=== PATIENT | male | born 1975 | race African-American/Black ===

== ENCOUNTER 2017-10-03 14:33 | Emergency (ER) | payer SELFPAY ==
[~2017-10-03] VITALS: Ht 190.5 cm; Wt 110.6 kg
[2017-10-03] MEDS ORDERED: IBUPROFEN 800MG TABLET PO ONE (17:00)
[2017-10-03 18:17] VITALS: BP 133/81
== END 2017-10-03 18:19 | disposition home or self-care (01) ==
LOC: ER 16:25
DX: S43.402D Unspecified sprain of left shoulder joint, subsequent encounter (principal); M25.522 Pain in left elbow; X99.9XXD Assault by unspecified sharp object, subsequent encounter; R03.0 Elevated blood-pressure reading, without diagnosis of hypertension
CPT/HCPCS: 73030; 73080; 99284

== ENCOUNTER 2018-10-13 14:18 | Emergency (ER) | payer SELFPAY ==
[~2018-10-13] VITALS: Ht 180.3 cm; Wt 90.0 kg
[2018-10-13] MEDS ORDERED: NAPROXEN 250MG TABLET PO ONE (18:00)
[2018-10-13 18:27] LABS: CHLORIDE 111 mEq/L (98-107)
[2018-10-13 18:28] LABS: INR 1.1; PROTHROMBIN TIME 11.1 sec (9.6-11.0)
[2018-10-13 18:32] LABS: C REACTIVE PROTEIN QUANT 3.5 mg/L (0.0-3.0)
[2018-10-13 18:41] LABS: BASOPHILS % 0.5 % (0.0-2.0); EOSINOPHILS % 1.4 % (0.0-5.0); HEMOGLOBIN. 15.8 g/dL (14.0-18.0); LYMPHOCYTES % 39.2 % (20.0-50.0); MEAN CORPUSCULAR VOLUME 90.3 fL (80.0-94.0); MEAN PLATELET VOLUME 9.1 fl (7.4-10.4); MONOCYTES % 11.9 % (2.0-8.0); PLATELET 182 x1000/uL (130-400)
[2018-10-13 21:40] VITALS: BP 116/59
== END 2018-10-13 21:41 | disposition home or self-care (01) ==
LOC: ER 14:18
DX: S93.692A Other sprain of left foot, initial encounter (principal); X58.XXXA Exposure to other specified factors, initial encounter; Y93.89 Activity, other specified; Y92.89 Other specified places as the place of occurrence of the external cause; Y99.8 Other external cause status
CPT/HCPCS: 36415; 73630; 84550; 85651; 86140; 99284

== ENCOUNTER 2018-11-13 13:30 | Emergency (ER) | payer MEDICAID ==
[~2018-11-13] VITALS: Ht 182.9 cm; Wt 113.5 kg
[2018-11-13 15:12] VITALS: BP 112/62
== END 2018-11-13 15:48 | disposition left against medical advice (07) ==
LOC: ER 13:30
DX: R22.42 Localized swelling, mass and lump, left lower limb (principal); F91.8 Other conduct disorders
CPT/HCPCS: 99281